=== PATIENT | female | born 1980 | race Caucasian/White ===

== ENCOUNTER 2017-08-19 08:19 | Inpatient (IN) | payer OTHER ==
[2017-08-19 09:49] LABS: ADD UMIC NO; UR ASCORBIC ACID NEGATIVE (NEGATIVE); UR BILIRUBIN (Dip) NEGATIVE (NEGATIVE); UR BLOOD (Dip) NEGATIVE (NEGATIVE); UR CLARITY CLEAR (CLEAR); UR COLOR YELLOW (YELLOW); UR GLUCOSE (Dip) NEGATIVE (NEGATIVE); UR KETONES (Dip) NEGATIVE (NEGATIVE); UR LEUKOCYTE ESTERASE (Dip) NEGATIVE Leu/ul (NEGATIVE); UR NITRITE (Dip) NEGATIVE (NEGATIVE); UR SPECIFIC GRAVITY (Dip) 1.005 (1.003-1.030); UR TOTAL PROTEIN (Dip) NEGATIVE (NEGATIVE); UR UROBILINOGEN (Dip) 1+ mg/dL (NEGATIVE)
[2017-08-19] MEDS: LACTATED RINGER'S 1,000 ML IV ×2 (15:35→23:05)
[2017-08-19 15:59] LABS: ADD MAN DIFF? NO
[2017-08-19 16:00] LABS: WHITE BLOOD COUNT 8.7 10^3/ul (4.8-10.8)
[2017-08-19 16:00] LABS: BASOPHILS % 0.3 % (0.0-2.0); EOSINOPHILS # 0.1 10^3/ul (0.0-0.5); EOSINOPHILS % 1.6 % (0.0-7.0); HEMATOCRIT 34.9 % (37.0-47.0); HEMOGLOBIN 12.2 g/dl (12.0-16.0); LYMPHOCYTES # 1.7 10^3/ul (0.8-2.9); LYMPHOCYTES % 19.6 % (15.0-51.0); MEAN CORPUSCULAR HEMOGLOBIN 32.4 pg (29.0-33.0); MEAN CORPUSCULAR VOLUME 92.6 fl (82.0-101.0); MEAN PLATELET VOLUME 11.9 fl (7.4-10.4); MONOCYTE # 0.3 10^3/ul (0.3-0.9); MONOCYTES % 3.1 % (0.0-11.0); NEUTROPHIL # 6.5 10^3/ul (1.6-7.5); NEUTROPHILS % 74.9 % (39.0-77.0); PLATELET COUNT 186 10^3/UL (140-415); RED BLOOD COUNT 3.77 10^6/ul (4.20-5.40); RED CELL DISTRIBUTION WIDTH 13.3 % (11.5-14.5)
[2017-08-19] MEDS ORDERED: ACETAMINOPHEN 325 MG TAB PO (16:00)
[2017-08-19 16:28] LABS: INR 0.94; PROTIME 12.7 Sec (11.9-14.9)
[2017-08-19 16:29] LABS: PARTIAL THROMBOPLASTIN TIME 26.9 Sec (25.0-35.0)
[2017-08-19 16:50] LABS: HEPATITIS B SURFACE ANTIGEN NEGATIVE (NEGATIVE)
[2017-08-19] MEDS: DOCUSATE SODIUM 100 MG CAP PO (21:00)
[2017-08-20] MEDS: LACTATED RINGER'S 1,000 ML IV ×3 (09:03→23:45)
[2017-08-20] MEDS: FERROUS SULFATE (EC) 325 MG TAB PO (10:17)
[2017-08-20] MEDS: PRENATAL VITAMIN PO (10:17)
[2017-08-20] MEDS: DOCUSATE SODIUM 100 MG CAP PO ×2 (10:17→21:00)
[2017-08-21] MEDS: LACTATED RINGER'S 1,000 ML IV ×3 (01:12→17:52)
[2017-08-21] MEDS: PRENATAL VITAMIN PO (09:36)
[2017-08-21] MEDS: DOCUSATE SODIUM 100 MG CAP PO (09:36)
[2017-08-21] MEDS: FERROUS SULFATE (EC) 325 MG TAB PO (09:36)
[2017-08-21 14:16] LABS: RUPTURE FETAL MEMBRANES NEGATIVE (NEGATIVE)
== END 2017-08-21 18:25 | disposition home or self-care (01) | DRG 780 ==
LOC: OBT 08:19 → L-D 08:20 → OBT 14:27 → L-D 14:15
DX: O47.1 False labor at or after 37 completed weeks of gestation (principal); Z3A.37 37 weeks gestation of pregnancy
CPT/HCPCS: 76815; 76816; 76818; 81003; 84112; 85025; 85610; 85730; 86850; 86900; 86901; 87086; 87340

== ENCOUNTER 2017-08-22 18:12 | Outpatient (CLI) | payer OTHER | END 2017-08-22 19:38 | disposition home or self-care (01) | LOC: OBT 18:12 → L-D 18:13 → OBT 19:38 | DX: O41.03X0 Oligohydramnios, third trimester, not applicable or unspecified (principal); O09.523 Supervision of elderly multigravida, third trimester; Z3A.37 37 weeks gestation of pregnancy | CPT/HCPCS: 76818 ==

== ENCOUNTER 2017-08-25 08:57 | Inpatient (IN) | payer OTHER ==
[2017-08-25] MEDS: LACTATED RINGER'S 1,000 ML IV ×2 (12:06→21:58)
[2017-08-26] MEDS: LACTATED RINGER'S 1,000 ML IV ×2 (02:21→05:40)
[2017-08-26] MEDS: PRENATAL VITAMIN PO (08:32)
== END 2017-08-26 14:26 | disposition home or self-care (01) | DRG 782 ==
LOC: OBT 08:57 → L-D 08:58 → OBT 10:28 → PP1 10:30
DX: O41.03X0 Oligohydramnios, third trimester, not applicable or unspecified (principal); O09.523 Supervision of elderly multigravida, third trimester; Z3A.38 38 weeks gestation of pregnancy
CPT/HCPCS: 76816; 76818

== ENCOUNTER 2017-08-28 09:44 | Inpatient (IN) | payer OTHER ==
[2017-08-28] MEDS ORDERED: MISOPROSTOL 200 MCG TAB PR (12:00)
[2017-08-28] MEDS ORDERED: OXYTOCIN 30 UNITS/LR 500 ML IV (12:00)
[2017-08-28] MEDS ORDERED: CARBOPROST 250 MCG INJ IM (12:00)
[2017-08-28] MEDS ORDERED: METHYLERGONOVINE 0.2 MG INJ IM (12:00)
[2017-08-28] MEDS ORDERED: LIDOCAINE 1% (MPF) 30 ML INJ INJ (12:00)
[2017-08-28] MEDS ORDERED: BUTORPHANOL 2 MG INJ IV ×2 (12:00)
[2017-08-28] MEDS: LACTATED RINGER'S 1,000 ML IV ×4 (12:16→23:49)
[2017-08-28 12:26] LABS: ADD MAN DIFF? NO
[2017-08-28 12:29] LABS: WHITE BLOOD COUNT 9.7 10^3/ul (4.8-10.8)
[2017-08-28 12:29] LABS: BASOPHILS % 0.4 % (0.0-2.0); EOSINOPHILS # 0.3 10^3/ul (0.0-0.5); EOSINOPHILS % 2.6 % (0.0-7.0); HEMATOCRIT 37.8 % (37.0-47.0); HEMOGLOBIN 13.2 g/dl (12.0-16.0); LYMPHOCYTES # 1.8 10^3/ul (0.8-2.9); LYMPHOCYTES % 18.2 % (15.0-51.0); MEAN CORPUSCULAR HEMOGLOBIN 32.6 pg (29.0-33.0); MEAN CORPUSCULAR HGB CONC 34.9 g/dl (32.0-37.0); MEAN CORPUSCULAR VOLUME 93.3 fl (82.0-101.0); MEAN PLATELET VOLUME 11.9 fl (7.4-10.4); MONOCYTE # 0.5 10^3/ul (0.3-0.9); MONOCYTES % 4.8 % (0.0-11.0); NEUTROPHIL # 7.1 10^3/ul (1.6-7.5); NEUTROPHILS % 73.5 % (39.0-77.0); PLATELET COUNT 211 10^3/UL (140-415); RED BLOOD COUNT 4.05 10^6/ul (4.20-5.40); RED CELL DISTRIBUTION WIDTH 13.6 % (11.5-14.5)
[2017-08-28 14:50] LABS: INR 0.93; PROTIME 12.6 Sec (11.9-14.9)
[2017-08-28 14:51] LABS: PARTIAL THROMBOPLASTIN TIME 27.6 Sec (25.0-35.0)
[2017-08-28] MEDS: OXYTOCIN 30 UNITS/LR 500 ML IV (18:07)
[2017-08-28 20:28] LABS: HEPATITIS B SURFACE ANTIGEN NEGATIVE (NEGATIVE)
[2017-08-28 21:41] LABS: RAPID PLASMA REAGIN NONREACTIVE (NR)
[2017-08-28] MEDS ORDERED: FENTAnyl 2MCG/ML-ROPIV 0.2% 100 ML (23:31)
[2017-08-29] MEDS ORDERED: NALOXONE (0.4 MG/ML) INJ IV
[2017-08-29] MEDS: FENTAnyl 2MCG/ML-ROPIV 0.2% 100 ML BAG EPI ×2 (01:33→06:53)
[2017-08-29] MEDS: LACTATED RINGER'S 1,000 ML IV ×4 (03:46→17:17)
[2017-08-29] MEDS ORDERED: TERBUTALINE 1 ML (16:19)
[2017-08-29] MEDS: TERBUTALINE 1 MG/ML INJ SC (16:30)
[2017-08-29] MEDS: OXYTOCIN 30 UNITS/LR 500 ML IV ×2 (17:54→19:13)
[2017-08-29] MEDS: IBUPROFEN 600 MG TAB PO ×2 (18:40→23:36)
[2017-08-29] MEDS: HYDROCODONE/APAP (5/325) TAB PO (20:55)
[2017-08-29] MEDS ORDERED: DIBUCAINE 1% 30 GM OINT PR (21:00)
[2017-08-29] MEDS: SENNA/DOCUSATE NA (8.6MG/50MG) TAB PO (21:00)
[2017-08-29] MEDS ORDERED: MISOPROSTOL 200 MCG TAB PR (21:00)
[2017-08-29] MEDS ORDERED: WITCH HAZEL/GLYCERIN PAD PR (21:00)
[2017-08-29] MEDS ORDERED: ACETAMINOPHEN 325 MG TAB PO (21:00)
[2017-08-29] MEDS ORDERED: CARBOPROST 250 MCG INJ IM (21:00)
[2017-08-29] MEDS ORDERED: LANOLIN 7 GM TUBE TOP (21:00)
[2017-08-29] MEDS ORDERED: METHYLERGONOVINE 0.2 MG INJ IM (21:00)
[2017-08-29] MEDS ORDERED: OXYTOCIN 30 UNITS/LR 500 ML IV (21:00)
[2017-08-29] MEDS: LACTATED RINGER'S 1,000 ML IV* (22:21)
[2017-08-29] MEDS: BENZOCAINE 20% 56 ML SPRAY TOP (23:37)
[2017-08-30] MEDS: HYDROCODONE/APAP (5/325) TAB PO ×4 (01:14→23:47)
[2017-08-30] MEDS: LACTATED RINGER'S 1,000 ML IV* ×3 (04:44→20:44)
[2017-08-30] MEDS: IBUPROFEN 600 MG TAB PO ×4 (05:50→23:46)
[2017-08-30] MEDS: SENNA/DOCUSATE NA (8.6MG/50MG) TAB PO ×2 (09:18→20:45)
[2017-08-30 09:41] LABS: ADD MAN DIFF? NO
[2017-08-30 09:45] LABS: BASOPHIL # 0.1 10^3/ul (0.0-0.1); BASOPHILS % 0.5 % (0.0-2.0); EOSINOPHILS # 0.3 10^3/ul (0.0-0.5); EOSINOPHILS % 2.7 % (0.0-7.0); HEMATOCRIT 31.8 % (37.0-47.0); HEMOGLOBIN 10.9 g/dl (12.0-16.0); LYMPHOCYTES # 2.1 10^3/ul (0.8-2.9); LYMPHOCYTES % 21.8 % (15.0-51.0); MEAN CORPUSCULAR HEMOGLOBIN 32.1 pg (29.0-33.0); MEAN CORPUSCULAR HGB CONC 34.3 g/dl (32.0-37.0); MEAN CORPUSCULAR VOLUME 93.5 fl (82.0-101.0); MEAN PLATELET VOLUME 12.1 fl (7.4-10.4); MONOCYTE # 0.5 10^3/ul (0.3-0.9); MONOCYTES % 5.2 % (0.0-11.0); NEUTROPHIL # 6.7 10^3/ul (1.6-7.5); NEUTROPHILS % 69.4 % (39.0-77.0); PLATELET COUNT 170 10^3/UL (140-415); RED CELL DISTRIBUTION WIDTH 13.8 % (11.5-14.5)
[2017-08-30 09:45] LABS: WHITE BLOOD COUNT 9.6 10^3/ul (4.8-10.8)
[2017-08-30] MEDS: HYDROmorphONE 0.5 MG/0.5 ML SYG IV ×2 (13:14→19:49)
[2017-08-31] MEDS: IBUPROFEN 600 MG TAB PO ×2 (06:00→08:16)
[2017-08-31] MEDS: LACTATED RINGER'S 1,000 ML IV* (06:30)
[2017-08-31] MEDS: SENNA/DOCUSATE NA (8.6MG/50MG) TAB PO (08:16)
[2017-08-31] MEDS: DIPHTH/TET/ACEL PERTUSS (ADULT) 0.5 ML VIAL IM* (09:00)
== END 2017-08-31 13:40 | disposition home or self-care (01) | DRG 775 ==
LOC: OBT 09:44 → L-D 09:46 → PP1 08-29 21:42 → OBT 11:50 → L-D 11:35
PROVIDERS: Obstetrics & Gynecology
PROC: 10E0XZZ Delivery of Products of Conception, External Approach (ICD-10-PCS; principal; 2017-08-28)
PROC: 4A1HXCZ Monitoring of Products of Conception, Cardiac Rate, External Approach (ICD-10-PCS; 2017-08-28)
DX: O41.03X0 Oligohydramnios, third trimester, not applicable or unspecified (principal); O69.81X0 Labor and delivery complicated by cord around neck, without compression, not applicable or unspecified; Z3A.38 38 weeks gestation of pregnancy; Z37.0 Single live birth
CPT/HCPCS: 62319; 76818; 85025; 85610; 85730; 86592; 86900; 86901; 87340; 99464

== ENCOUNTER 2017-09-04 21:03 | Observation (INO) | payer OTHER ==
[2017-09-05 01:33] LABS: ADD MAN DIFF? NO
[2017-09-05 01:35] LABS: WHITE BLOOD COUNT 8.8 10^3/ul (4.8-10.8)
[2017-09-05 01:35] LABS: BASOPHIL # 0.1 10^3/ul (0.0-0.1); BASOPHILS % 0.6 % (0.0-2.0); EOSINOPHILS # 0.5 10^3/ul (0.0-0.5); EOSINOPHILS % 5.3 % (0.0-7.0); HEMOGLOBIN 13.8 g/dl (12.0-16.0); LYMPHOCYTES # 1.9 10^3/ul (0.8-2.9); LYMPHOCYTES % 22.1 % (15.0-51.0); MEAN CORPUSCULAR HEMOGLOBIN 32.2 pg (29.0-33.0); MEAN CORPUSCULAR HGB CONC 34.5 g/dl (32.0-37.0); MEAN CORPUSCULAR VOLUME 93.5 fl (82.0-101.0); MEAN PLATELET VOLUME 11.5 fl (7.4-10.4); MONOCYTE # 0.5 10^3/ul (0.3-0.9); MONOCYTES % 5.5 % (0.0-11.0); NEUTROPHIL # 5.8 10^3/ul (1.6-7.5); PLATELET COUNT 246 10^3/UL (140-415); RED BLOOD COUNT 4.28 10^6/ul (4.20-5.40); RED CELL DISTRIBUTION WIDTH 13.4 % (11.5-14.5)
[2017-09-05 01:51] LABS: ANION GAP 15 (8-16); BLOOD UREA NITROGEN 15 mg/dl (7-20); CALCIUM 8.9 mg/dl (8.4-10.2); CARBON DIOXIDE 24 mmol/L (21-31); CHLORIDE 107 mmol/L (97-110); CREATININE 0.73 mg/dl (0.44-1.00); GLUCOSE 80 mg/dl (70-220); POTASSIUM 3.6 mmol/L (3.5-5.1); SODIUM 142 mmol/L (135-144)
[2017-09-05 01:55] LABS: INR 0.88; PT RATIO 0.9
[2017-09-05 01:56] LABS: PARTIAL THROMBOPLASTIN TIME 25.9 Sec (25.0-35.0)
[2017-09-05] MEDS: ONDANSETRON 4 MG INJ IV (02:16)
[2017-09-05] MEDS: morphine 4 MG/ML VIAL IV (02:16)
[2017-09-05] MEDS ORDERED: ONDANSETRON (ODT) 4 MG TAB ODT (02:23)
[2017-09-05] MEDS ORDERED: HYDROCODONE/APAP (5/325) TAB PO (02:30)
[2017-09-05] MEDS ORDERED: ONDANSETRON 4 MG INJ IV (05:30)
[2017-09-05] MEDS: DEXTROSE 5%-0.45% NACL 1,000 ML IV ×2 (05:55→15:30)
[2017-09-05] MEDS: SUMATRIPTAN 6 MG/0.5 ML INJ SC (05:56)
[2017-09-05 06:08] LABS: ADD MAN DIFF? NO
[2017-09-05 06:24] LABS: WHITE BLOOD COUNT 8.7 10^3/ul (4.8-10.8)
[2017-09-05 06:24] LABS: BASOPHILS % 0.5 % (0.0-2.0); EOSINOPHILS # 0.4 10^3/ul (0.0-0.5); HEMATOCRIT 38.7 % (37.0-47.0); HEMOGLOBIN 13.2 g/dl (12.0-16.0); LYMPHOCYTES # 2.2 10^3/ul (0.8-2.9); LYMPHOCYTES % 25.6 % (15.0-51.0); MEAN CORPUSCULAR HEMOGLOBIN 32.1 pg (29.0-33.0); MEAN CORPUSCULAR HGB CONC 34.1 g/dl (32.0-37.0); MEAN CORPUSCULAR VOLUME 94.2 fl (82.0-101.0); MEAN PLATELET VOLUME 11.6 fl (7.4-10.4); MONOCYTE # 0.5 10^3/ul (0.3-0.9); MONOCYTES % 5.1 % (0.0-11.0); NEUTROPHIL # 5.5 10^3/ul (1.6-7.5); NEUTROPHILS % 63.3 % (39.0-77.0); PLATELET COUNT 237 10^3/UL (140-415); RED BLOOD COUNT 4.11 10^6/ul (4.20-5.40); RED CELL DISTRIBUTION WIDTH 13.4 % (11.5-14.5)
[2017-09-05 06:51] LABS: ALANINE AMINOTRANSFERASE 35 IU/L (13-69); ALBUMIN 3.4 g/dl (3.3-4.9); ALBUMIN/GLOBULIN RATIO 1.25; ALKALINE PHOSPHATASE 65 IU/L (42-121); ANION GAP 12 (8-16); ASPARTATE AMINO TRANSFERASE 22 IU/L (15-46); BILIRUBIN,INDIRECT 0.1 mg/dl (0-1.1); BILIRUBIN,TOTAL 0.1 mg/dl (0.2-1.3); BLOOD UREA NITROGEN 13 mg/dl (7-20); CALCIUM 8.6 mg/dl (8.4-10.2); CARBON DIOXIDE 27 mmol/L (21-31); CHLORIDE 109 mmol/L (97-110); CREATININE 0.68 mg/dl (0.44-1.00); GLUCOSE 80 mg/dl (70-220); MAGNESIUM 1.8 mg/dl (1.7-2.5); PHOSPHORUS 4.7 mg/dl (2.5-4.9); POTASSIUM 3.9 mmol/L (3.5-5.1); SODIUM 144 mmol/L (135-144); TOTAL PROTEIN 6.1 g/dl (6.1-8.1)
[2017-09-05] MEDS ORDERED: morphine 2 MG INJ IV (07:30)
[2017-09-05] MEDS: METOCLOPRAMIDE 10 MG INJ IV (14:04)
[2017-09-05] MEDS: KETOROLAC 15 MG INJ IV (14:17)
[2017-09-05] MEDS: HYDROmorphONE 0.5 MG/0.5 ML SYG IV ×2 (16:57→18:15)
[2017-09-06] MEDS: ACETAMINOPHEN 325 MG TAB PO ×2 (00:27→07:57)
== END 2017-09-06 12:00 | disposition home or self-care (01) ==
LOC: FTE 21:03 → MS2 09-05 02:08
DX: G97.1 Other reaction to spinal and lumbar puncture (principal); R00.1 Bradycardia, unspecified; Z90.49 Acquired absence of other specified parts of digestive tract
CPT/HCPCS: 36415; 80048; 80053; 83735; 84100; 85025; 85610; 85730; 96374; 96375; 99285-25